=== PATIENT | female | born 1975 | race African-American/Black ===

== ENCOUNTER 2017-10-14 21:47 | Emergency (ER) | payer MEDICARE, OTHER ==
[2017-10-14] MEDS ORDERED: FUROSEMIDE 40 MG TABLET PO ONE (22:35)
--- NOTE | 2017-10-14 22:38 | ED Physician Documentation ---
Lower Extremity Problem - HISTORIAN Historian: patient, other (pharmacist critical care) - HPI Stated Complaint: KOBE LEG SWELLING Chief Complaint: Lower Extremity Problem Additional Information: past two days pt has food over indulged w/apparent high salt foods. this is recent chg eating pattern Location of Injury: R ankle, L ankle Onset: days ago (1-2) Timing: still present, other (pt has large ankles normally -slight xs sweloling past 1-2 days w/ chg eating pattern) Recent Injury: No Context: prolonged pressure on ext Where: other (pt lives in [facility] - independent support housing. [facility]) Severity: mild Quality: swelling, tenderness (mild). denies: numbness, tingling Relieved By: other (was told by caregivers to lie flat w/ feet elevated but she does not comply) Associated Symptoms: denies: chest pain, shortness of breath - ROS CONST: no problems. denies: recent illness, fever, sweating MS/SKIN/LYMPH: none CVS/RESP: none. denies: shortness of breath, cough GI/: none EYES/ENT: denies: problems with vision, sore throat NERUO/PSYCH: denies: headache, difficulty walking - PAST HX Past History: other (schizophrenia bipolar pud obesity) Surgeries/Procedures: other (knee replacement) Allergies/Adverse Reactions: Allergies Allergy/AdvReac Type Severity Reaction Status Date / Time No Known Allergies Allergy Verified 10/14/17 22:10 Home Medications: Ambulatory Orders Medication Instructions Recorded Docusate Sodium [Colace] 100 mg PO BID 10/14/17 Ferrous Sulfate [Feosol] 325 mg PO BID 10/14/17 [place]bee Carbonate [Higbee 450 mg PO BID 10/14/17 Carbonate ER] Loratadine [Claritin] 10 mg PO DAILY 10/14/17 Oxybutynin Chloride [Ditropan] 5 mg PO BID 10/14/17 Paliperidone [Invega] 6 mg PO BID 10/14/17 Quetiapine Fumarate [Seroquel] 50 mg PO PRN PRN 10/14/17 Quetiapine Fumarate [Seroquel] 100 mg PO BID 10/14/17 Ranitidine HCl [Zantac] 150 mg PO 717 10/14/17 Trazodone HCl [Desyrel] 100 mg PO HS 10/14/17 - SOCIAL HX Smoking History: non-smoker Alcohol Use: none Drug Use: none - FAMILY HX Family History: no significant history - VITAL SIGNS Vital Signs: Vital Signs Temp Pulse Resp BP Pulse Ox 98.2 F 85 19 161/79 100 10/14/17 21:47 10/14/17 21:47 10/14/17 21:47 10/14/17 21:47 10/14/17 21:47 - REVIEWED ASSESSMENTS Nursing Assessment Reviewed: Yes Vitals Reviewed: Yes ED Results Lab/Radiology - Orders Orders: ED Orders Category Date Time Status Furosemide [Lasix] Med 10/14/17 22:35 Once 20 mg PO NOW ONE Lower Extremity Problem - EXAM General Appearance: mild distress Neuro/Tendon: normal sensation, normal motor functions, normal tendon functions , other (ankles swollen slightly mild tenderness to palpation) RESPIRATORY: no resp distress, chest non-tender, breath sounds normal. No: wheezes, rales, rhonchi CVS: reg rate & rhythm, heart sounds normal JOINT: joints nml VASCULAR: no vascular compromise, pulses full/equal NEURO/PSYCH: oriented X3, motor nml, sensation nml, mood/affect nml SKIN: warm/dry, normal color. No: cyanosis, diaphoresis, jaundice Discharge Clincal Impression: ankle edema s/p xs salty foods, hx schizophrenia bipolar pud obesity Referrals: Primary Doctor,No [Primary Care Provider] - 2 Days Comments: rec dec salt use lasix 20 prn Condition: Fair Disposition: 01 HOME, SELF-CARE Decision to Admit: NO Decision Time: 22:47
[2017-10-14 23:35] VITALS: BP 154/80
== END 2017-10-14 22:50 | disposition home or self-care (01) ==
LOC: ED 21:47
DX: R60.0 Localized edema (principal); E66.9 Obesity, unspecified; K27.9 Peptic ulcer, site unspecified, unspecified as acute or chronic, without hemorrhage or perforation; Z86.59 Personal history of other mental and behavioral disorders
CPT/HCPCS: 99283

== ENCOUNTER 2017-10-28 22:01 | Emergency (ER) | payer MEDICARE, OTHER ==
--- NOTE | 2017-10-28 22:42 | ED Physician Documentation ---
General Adult - HISTORIAN Historian: patient - HPI Stated Complaint: leg swelling Chief Complaint: General Adult Onset: days ago Timing: still present Severity: moderate Further Comments: yes (Pt is a 42 yo female with MR, schizoaffective d/o with c/ o LE edema. Pt was seen here 10/14/17 with same complaint and was rx'd Lasix 20 mg po prn. Pt has taken this a couple of times she says.) - ROS CONST: no problems EYES/ENT: none CVS/RESP: none GI/: none MS/SKIN/LYMPH: ankle swelling - PAST HX Past History: other (Bipolar d/o, MR, schizoaffective d/o, explosive d/o, GI ulcers.) Allergies/Adverse Reactions: Allergies Allergy/AdvReac Type Severity Reaction Status Date / Time No Known Allergies Allergy Verified 10/28/17 23:16 Home Medications: Ambulatory Orders Medication Instructions Recorded Docusate Sodium [Colace] 100 mg PO BID 10/14/17 Ferrous Sulfate [Feosol] 325 mg PO BID 10/14/17 [place] Carbonate [[place]mont 450 mg PO BID 10/14/17 Carbonate ER] Loratadine [Claritin] 10 mg PO DAILY 10/14/17 Oxybutynin Chloride [Ditropan] 5 mg PO BID 10/14/17 Paliperidone [Invega] 6 mg PO BID 10/14/17 Quetiapine Fumarate [Seroquel] 100 mg PO BID 10/14/17 Ranitidine HCl [Zantac] 150 mg PO 717 10/14/17 Trazodone HCl [Desyrel] 100 mg PO HS 10/14/17 Medroxyprogesterone Acetate 150 mg IM DIRECTED 10/28/17 [Depo-Provera] Polyethylene Glycol 3350 [Miralax] 17 gm PO [id number] 10/28/17 - SOCIAL HX Smoking History: non-smoker - FAMILY HX Family History: No - VITAL SIGNS Vital Signs: Vital Signs Temp Pulse Resp BP Pulse Ox 154/80 10/14/17 22:50 - REVIEWED ASSESSMENTS Nursing Assessment Reviewed: Yes Vitals Reviewed: Yes Progress - Progress Progress: Lasix 20 mg IV urine output >900 cc leg swelling improved f/u pcp for ongoing tx with diuretics. General Adult Physical Exam - PHYSICAL EXAM GENERAL APPEARANCE: mild distress EENT: pharynx normal NECK: normal inspection, supple RESPIRATORY: no resp distress, chest non-tender, breath sounds normal CVS: reg rate & rhythm, heart sounds normal, equal pulses ABDOMEN: soft, no organomegaly, normal bowel sounds BACK: normal inspection SKIN: warm/dry, normal color EXTREMITIES: normal range of motion, edema (2+) NEURO: motor nml, sensation nml, other (baseline mental status) Discharge Clincal Impression: Lower extremity edema Referrals: Alfonso Menjivar [Primary Care Provider] - Condition: Good Disposition: 01 HOME, SELF-CARE Decision to Admit: NO Decision Time: 23:44
[2017-10-28] MEDS ORDERED: FUROSEMIDE 20 MG/2 ML VIAL IVP ONE (22:52)
[2017-10-29 00:14] VITALS: BP 123/84
== END 2017-10-28 23:59 | disposition home or self-care (01) ==
LOC: ED 22:01
DX: R60.0 Localized edema (principal)
CPT/HCPCS: 96374; 99284; J1940; S1016

== ENCOUNTER 2017-11-30 09:37 | Emergency (ER) | payer MEDICARE, OTHER ==
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
[2017-11-30 10:46] LABS: BASOPHILS % 0.4 (0.0-1.5); MEAN CORPUSCULAR HEMOGLOBIN 28.1 pg (28.0-34.0); MEAN CORPUSCULAR VOLUME 90.9 fl (80.0-100.0); MONOCYTES % 2.9 % (0.0-11.0); NEUTROPHILS # 4.6 # k/uL (1.4-7.7)
[2017-11-30 11:05] LABS: eGFR (Non-African) > 60
[2017-11-30 12:57] VITALS: BP 130/81
[2017-12-01 07:16] LABS: APPEARANCE,URINE CLEAR (CLEAR); COLOR,URINE YELLOW (YELLOW); OCCULT BLOOD,URINE NEGATIVE (NEGATIVE)
[2017-12-01 07:17] LABS: UROBILINOGEN URINE 0.2 Eu (0.2-1.0)
== END 2017-11-30 11:55 | disposition home or self-care (01) ==
LOC: ED 09:37
DX: F91.9 Conduct disorder, unspecified (principal)
CPT/HCPCS: 80053; 81002; 84439; 84443; 84481; 85025; 99283